=== PATIENT | female | born 1985 | race African-American/Black ===

== ENCOUNTER 2016-08-13 13:36 | Emergency (ER) | payer SELFPAY ==
[2016-08-13 13:46] VITALS: BP 119/71
[2016-08-13] MEDS ORDERED: Ibuprofen TAB* 600 MG PO ONE (14:19)
--- NOTE | 2016-08-13 14:27 | ED ---
Upper Extremity Pain - HPI Summary HPI Summary: 30 female presents to ED after injuring herself while at work around 6:00am this morning on 08/13/16. 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 She complains of left shoulder, elbow and ankle/lower leg pain. She admits to some bruises on her arm from the incident but has not noticed any swelling or wounds. She is able to walk and bear weight on her ankle. Describes the pain to be achey and sore upon movement or on palpation. She tried taking an Ibuprofen around 6:00am while at work after the incident and states it did give her some relief. She denies any neck, back or right extremity pain. Denies c/p, difficulty breathing and headache. She did not hit her head, no LOC. - History of Current Complaint Chief Complaint: EDGeneral Stated Complaint: ARM PAIN INJURY FROM WORK Hx Obtained From: Patient Mechanism Of Injury: Direct Blow - alejandra lift and patient fell on her Onset/Duration: Started Hours Ago Timing: Constant - aching Severity Initially: Mild Severity Currently: Moderate Pain Location: Shoulder, Arm, Elbow, Other: - left ankle, lower legs Character: Dull, Aching, Stiffness Aggravating Factor(s): Movement, Lifting, Flexion, Extension Alleviating Factor(s): Rest, OTC Meds Associated Signs & Symptoms: Positive: Bruising. Negative: Swelling, Redness, Fever, Numbness/Tingling, Back Pain, Neck Pain Related History: Occupational Injury, Dominant Hand Right - Risk Factors DVT Risk Factors: Negative Septic Arthritis Risk Factor: Negative - Allergies/Home Medications Allergies/Adverse Reactions: Allergies Allergy/AdvReac Type Severity Reaction Status Date / Time No Known Allergies Allergy Verified 08/13/16 13:43 PMH/Surg Hx/FS Hx/Imm Hx Endocrine/Hematology History: Denies: Hx Diabetes Cardiovascular History: Denies: Hx Hypertension Infectious Disease History: No Infectious Disease History: Denies: Traveled Outside the [place] in Last 30 Days - Family History Known Family History: Positive: Unknown - Social History Smoking Status (MU): Never Smoked Tobacco Review of Systems Constitutional: Negative Eyes: Negative ENT: Negative Cardiovascular: Negative Respiratory: Negative Gastrointestinal: Negative Genitourinary: Negative Positive: Arthralgia - left elbow, shoulder, ankle, Myalgia - left elbow, shoulder, ankle, Decreased ROM Positive: Bruising - left upper proximal arm, shoulder Neurological: Negative Psychological: Normal All Other Systems Reviewed And Are Negative: Yes Physical Exam Triage Information Reviewed: Yes Vital Signs On Initial Exam: Initial Vitals Temp Pulse Resp BP Pulse Ox 98.0 F 70 18 119/71 100 08/13/16 13:43 08/13/16 13:43 08/13/16 13:43 08/13/16 13:43 08/13/16 13:43 Vital Signs Reviewed: Yes Appearance: Positive: Well-Appearing, No Pain Distress, Well-Nourished Skin: Positive: Warm, Skin Color Reflects Adequate Perfusion, Dry, Purpura - mild ecchymosis noted proximal left extremity and shoulder Head/Face: Positive: Normal Head/Face Inspection - atraumatic, no LOC, no racoon eyes or thomas's sign Eyes: Positive: Normal, EOMI, KELIN, Conjunctiva Clear ENT: Positive: Hearing grossly normal Neck: Positive: Supple, Nontender Respiratory/Lung Sounds: Positive: Clear to Auscultation, Breath Sounds Present Cardiovascular: Positive: Normal, RRR, Pulses are Symmetrical in both Upper and Lower Extremities - 3+ radial and pedal Abdomen Description: Positive: Nontender Musculoskeletal: Positive: Pain @ - on palpation of left elbow, shoulder and ankle. Distal left lower extremity/lopez also tender on palpation. Full passive ROM of elbow ankle and shoulder however painful. No step off, crepitus or deformity noted. minor areas of ecchymosis in upper left extremity. no edema. motor and sensory intact. reflexes intact.. Negative: Augusto Sign Left - negative Dahl test as well, Edema Left Neurological: Positive: Normal, Sensory/Motor Intact, Alert, Oriented to Person Place, Time, CN Intact II-III, Reflexes Intact, NV Bundle Intact Distally, Normal Gait Psychiatric: Positive: Normal Diagnostics - Vital Signs Vital Signs Temp Pulse Resp BP Pulse Ox 08/13/16 13:43 98.0 F 70 18 119/71 100 - Laboratory Lab Statement: Any lab studies that have been ordered have been reviewed, and results considered in the medical decision making process. - Radiology lower left leg x-ray Xray Interpretation: No Acute Changes - NORMAL LEFT LOWER LEG AND ANKLE RADIOGRAPH. Radiology Interpretation Completed By: Radiologist left ankle x-ray Xray Interpretation: No Acute Changes - NORMAL LEFT LOWER LEG AND ANKLE RADIOGRAPH. Radiology Interpretation Completed By: Radiologist left elbow x-ray Xray Interpretation: No Acute Changes - Normal alignment. Negative for fat pad displacement to indicate effusion. No cortical disruption or suspicious trabecular irregularity to suggest fracture. Mild dorsal soft tissue swelling at the proximal forearm. Radiology Interpretation Completed By: Radiologist left shoulder x-ray Xray Interpretation: No Acute Changes - No traumatic injury evident. Re-Evaluation - Re-Evaluation First Eval Re-Evaluation Time: 14:45 Change: Improved - patient's pain was improved after ibuprofen Course/Dx - Course Course Of Treatment: Patient was given Ibuprofen for pain and inflammation. X- rays were taken of left shoulder, elbow and ankle to rule out fracture. All x- rays were negative. Prescribed ibuprofen will be given to take at home. Rest, ice and elevation. Patient was told to follow up with her primary care doctor especially if symptoms persist. - Diagnoses Differential Diagnosis/HQI/PQRI: Positive: Contusion, Fracture (Closed), Strain , Sprain Provider Diagnoses: Left ankle sprain, Sprain of elbow, left, Muscle strain of left shoulder region , Contusion - Physician Notifications Discussed Care Of Patient With: Dr Shah Discharge - Discharge Plan Condition: Stable Disposition: HOME Prescriptions: Ibuprofen TAB* [Motrin TAB* 600 MG] 600 mg PO Q8H PRN #10 tab PRN Reason: Pain Patient Education Materials: Shoulder Pain (ED), Elbow Sprain (ED), Ankle Sprain (ED), Ankle Exercises (GEN) Forms: *Work Release Referrals: Ronn Chang MD [Primary Care Provider] - Additional Instructions: Rest, Ice and Elevation will help with your injuries. Take Ibuprofen or Aleve with food as directed to will help with pain and inflammation. You may also use heat in the morning to help loosen your muscles. Refrain from intense physical activity. If pain persists please follow up with your PCP. If symptoms worsen please return to the ED.
--- NOTE | 2016-08-13 16:16 | RAD ---
Indication: LEFT shoulder pain following injury. Comparison: None. Technique: Internal and external rotation AP and scapular Y views LEFT shoulder Report: Normal acromioclavicular and glenohumeral joint alignment. Negative for fracture. Small inferior acromial bone spur. Unremarkable soft tissue contours. IMPRESSION: No traumatic injury evident.
--- NOTE | 2016-08-13 16:17 | RAD ---
INDICATION: Left lower leg and ankle pain after a "heavy person fell on her this morning" COMPARISON: None. TECHNIQUE: 2 views of the left ankle and 2 views of the left lower leg were obtained. FINDINGS: The well corticated bones exhibit normal alignment. Joint spaces appear maintained. No fracture is seen. IMPRESSION: NORMAL LEFT LOWER LEG AND ANKLE RADIOGRAPH. If the patient's symptoms persist, follow-up imaging is recommended.
--- NOTE | 2016-08-13 16:18 | RAD ---
Indication: LEFT elbow pain following injury. Comparison: None. Technique: AP and lateral views LEFT elbow. REPORT AND IMPRESSION: Normal alignment. Negative for fat pad displacement to indicate effusion. No cortical disruption or suspicious trabecular irregularity to suggest fracture. Mild dorsal soft tissue swelling at the proximal forearm.
--- NOTE | 2016-08-13 20:24 | ED ---
Hever Valente Erika, scribed for Tien Shah MD on 08/13/16 at 1433 . Progress - Progress Note Progress Note: Consulting on a patient for GILBERT Burkett. A 30 y/o F presents to the ED with a CC of multiple pains s/p trauma. 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 She states that early this morning, she was using a [employer] Lift to lift a heavy patient, when the lift and patient fell onto her. She denies LOC. She now reports left elbow pain, left shoulder pain, left ankle pain, and left lateral lopez pain. Pain is aggravated by movement. Patient denies chest pain, back pain, hip pain, and abdominal pain. She reports that she has been able to ambulate. Pain was also partially alleviated by ibuprofen, most recently taken at 06:00 today. Pt states she is right-handed. She denies Hx diabetes. Physical exam: The patient is well-nourished in no acute distress and in no acute pain. The skin is warm and dry and skin color reflects adequate perfusion. HEENT: The head is normocephalic and atraumatic. The pupils are equal and reactive. The conjunctivae are clear and without drainage. There is no Graham' s or Raccoon sign. Nares are patent and without drainage. Mouth reveals moist mucous membranes and the throat is without erythema and exudate. The external ears are intact. The ear canals are patent and without drainage. The tympanic membranes are intact. Neck is supple with full range of motion and non-tender. There are no carotid bruits. There is no neck vein distension. Respiratory: Chest is non-tender. Lungs are clear to auscultation and breath sounds are symmetrical and equal. Cardiovascular: Heart is regular rate and rhythm. There is no murmur or rub auscultated. There is no peripheral edema and pulses are symmetrical and equal. Abdomen: The abdomen is soft and non-tender. There are normal bowel sounds heard in all four quadrants and there is no organomegaly palpated. Musculoskeletal: There is no back pain noted. There is pain noted in the left shoulder. There is tenderness over the radial head of the left elbow. There is tenderness over the left distal ulna. There is good capillary refill and good pulses distally. There is tenderness in the left lateral malleolus. There is ecchymosis and tenderness in the left leg and left ankle, but there is full ROM. There is no peripheral edema or calf tenderness elicited. Neurological: Patient is alert and oriented to person, place and time. The patient has symmetrical motor strength in all four extremities. Cranial nerves are grossly intact. Deep tendon reflexes are symmetrical and equal in all four extremities. Psychiatric: The patient has an appropriate affect and does not exhibit any anxiety or depression. Please refer to Mary Bolivar's note for additional information. <Tien Shah - Last Filed: 08/13/16 20:23> Re-Evaluation - Re-Evaluation First Eval Re-Evaluation Time: 14:45 Change: Improved - patient's pain was improved after ibuprofen <Mary Bolivar - Last Filed: 08/13/16 19:25> Course/Dx <Mary Bolivar - Last Filed: 08/13/16 19:25> <Tien Shah - Last Filed: 08/13/16 20:23> - Diagnoses Provider Diagnoses: Left ankle sprain, Sprain of elbow, left, Muscle strain of left shoulder region , Contusion The documentation as recorded by the Hever pike Erika accurately reflects the service I personally performed and the decisions made by Alyssa wright Drew, MD.
== END 2016-08-13 17:10 | disposition home or self-care (01) ==
LOC: ED 13:36
DX: S93.402A Sprain of unspecified ligament of left ankle, initial encounter (principal); S53.402A Unspecified sprain of left elbow, initial encounter; S43.402A Unspecified sprain of left shoulder joint, initial encounter; Y93.F2 Activity, caregiving, lifting; Y92.9 Unspecified place or not applicable; T14.8 Other injury of unspecified body region; W22.8XXA Striking against or struck by other objects, initial encounter
CPT/HCPCS: 99282; A9270-GY

== ENCOUNTER 2016-08-23 08:07 | Emergency (ER) | payer OTHER ==
--- NOTE | 2016-08-23 09:24 | RAD ---
Indication: Fall, vomiting. CT of the brain was performed without IV contrast. Ventricular structures are midline. No midline shift is noted. The extraction spaces are unremarkable. There is no evidence of intracranial mass or hemorrhage. No other high or low density lesions are identified. Mastoid air cells and paranasal sinuses are otherwise unremarkable. IMPRESSION: No intracranial mass or hemorrhage is noted.
--- NOTE | 2016-08-23 09:33 | ED ---
Head Injury - HPI Summary HPI Summary: Patient presents after falling up her stairs two days ago while carrying groceries. She fell forward and struck the left side of her face, resulting in a small abrasion on her left cheek. She vomited afterwards, but denies LOC, neck pain or amnesia. She presents today due to headache and black eye. She has been able to go about her normal activities without neuro deficits or abnormality. She does not take blood thinners. She is able to open her mouth fully and does not have pain chewing or swallowing. She has altered sensation - History Of Current Complaint Chief Complaint: EDHeadInjury Stated Complaint: FALL 2DAYS AGO Time Seen by Provider: 08/23/16 08:41 Hx Obtained From: Patient Mechanism Of Injury: Fall From A Standing Position Onset/Duration: Started Days Ago, Traumatic, Still Present Onset of Pain: Immediate Severity Currently: Severe Severity Initially: Severe Pain Intensity: 9 Location of Head Injury: Frontal Location: Discrete At: - left forehead and cheek Character: Dull, Aching Alleviating Factor(s): Ice, OTC Medications` Associated Signs And Symptoms: Vomiting, Bruising - Allergies/Home Medications Allergies/Adverse Reactions: Allergies Allergy/AdvReac Type Severity Reaction Status Date / Time No Known Allergies Allergy Verified 08/13/16 13:43 PMH/Surg Hx/FS Hx/Imm Hx Previously Healthy: Yes Endocrine/Hematology History: Denies: Hx Diabetes Cardiovascular History: Denies: Hx Hypertension Respiratory History: Denies: Hx Asthma Infectious Disease History: No Infectious Disease History: Denies: Traveled Outside the [place] in Last 30 Days - Family History Known Family History: Positive: Unknown - Social History Occupation: Employed Full-time Lives: With Family Alcohol Use: None Substance Use Type: Reports: None Smoking Status (MU): Never Smoked Tobacco Review of Systems Negative: Photophobia, Diplopia Positive: Bruising - left inferior orbit Positive: Headache - mild. Negative: Weakness, Paresthesia, Numbness All Other Systems Reviewed And Are Negative: Yes Physical Exam Triage Information Reviewed: Yes Vital Signs On Initial Exam: Initial Vitals Temp Pulse Resp BP Pulse Ox 98.2 F 74 20 136/75 100 08/23/16 08:09 08/23/16 08:09 08/23/16 08:09 08/23/16 08:09 08/23/16 08:09 Vital Signs Reviewed: Yes Appearance: Positive: Well-Appearing, Pain Distress, Obese Skin: Positive: Warm, Skin Color Reflects Adequate Perfusion, Dry, Tender - left orbit ecchymosis and pea sized abrasion, Soft Head/Face: Positive: Normal Head/Face Inspection - left orbit ecchymosis and pea sized abrasion Eyes: Positive: EOMI, KELIN, Conjunctiva Clear ENT: Positive: Hearing grossly normal, Pharynx normal, TMs normal Dental: Negative: Percussion Tenderness @ Neck: Positive: Supple, Nontender, No Lymphadenopathy Respiratory/Lung Sounds: Positive: Clear to Auscultation, Breath Sounds Present Cardiovascular: Positive: RRR Musculoskeletal: Negative: Edema Right Neurological: Positive: Sensory/Motor Intact, Alert, Oriented to Person Place, Time, CN Intact II-III, NV Bundle Intact Distally, Normal Gait Psychiatric: Positive: Affect/Mood Appropriate AVPU Assessment: Alert Diagnostics - Vital Signs Vital Signs Temp Pulse Resp BP Pulse Ox 08/23/16 08:42 64 100 08/23/16 08:09 98.2 F 74 20 136/75 100 - Laboratory Lab Statement: Any lab studies that have been ordered have been reviewed, and results considered in the medical decision making process. - CT No standard instances CT Interpretation: No Acute Changes CT Interpretation Completed By: Radiologist - CT brain negative Head Injury Course/Dx - Diagnoses Differential Diagnosis/HQI/PQRI: Cerebral Contusion, Cervical Sprain, Contusion , Hematoma, Intracranial Bleed, Orbital Fracture, Skull Fracture Provider Diagnoses: Head injury, Contusion Discharge - Discharge Plan Condition: Stable Disposition: HOME Patient Education Materials: Head Injury (ED) Referrals: Ronn Chang MD [Primary Care Provider] - Additional Instructions: Please continue to ice and use Tylenol and ibuprofen to help with pain. Follow- up with your primary care provider in 3-5 days if your symptoms do not improve. Return to the emergency department if symptoms worsen.
[2016-08-23 10:21] VITALS: BP 108/66
== END 2016-08-23 10:20 | disposition home or self-care (01) ==
LOC: ED 08:07
DX: S09.90XA Unspecified injury of head, initial encounter (principal); S00.83XA Contusion of other part of head, initial encounter; W10.9XXA Fall (on) (from) unspecified stairs and steps, initial encounter; Y92.9 Unspecified place or not applicable; Y93.89 Activity, other specified
CPT/HCPCS: 70450; 99282

== ENCOUNTER 2016-12-21 14:52 | Emergency (ER) | payer OTHER ==
[2016-12-21] MEDS ORDERED: oxyCODONE/Acetamin 5/325 MG* TAB PO ONE ×2 (17:35)
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
[2016-12-21 18:37] LABS: UR Preg Internal Control QC Line Present
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
[2016-12-21 20:19] VITALS: BP 126/74
== END 2016-12-21 20:18 | disposition home or self-care (01) ==
LOC: EEVIPCON 14:52 → ED 14:52
DX: T14.8 Other injury of unspecified body region (principal); Y04.2XXA Assault by strike against or bumped into by another person, initial encounter; Y92.9 Unspecified place or not applicable
CPT/HCPCS: 70450; 70486; 81025; 99282; A9270-GY

== ENCOUNTER → 2017-04-21 13:23 | Emergency (ER) | payer SELFPAY ==
[~2017-04-21 13:23] MED LIST: oxyCODONE/Acetamin 5/325 MG* TAB PO ONE
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
== END | disposition home or self-care (01) ==
LOC: ED 13:23
DX: M54.5 Low back pain (principal); S70.12XA Contusion of left thigh, initial encounter; S70.11XA Contusion of right thigh, initial encounter; S30.0XXA Contusion of lower back and pelvis, initial encounter; Y04.2XXA Assault by strike against or bumped into by another person, initial encounter; Y92.9 Unspecified place or not applicable
CPT/HCPCS: 36415; 86703; 99282; A9270-GY

== ENCOUNTER 2017-08-15 08:51 | Emergency (ER) | payer SELFPAY ==
[2017-08-15] MEDS ORDERED: Al Hydrox/Mg Hydrox/Simet LIQ* 30 ML UDC PO ONE (09:22)
[2017-08-15] MEDS ORDERED: Lidocaine 2% VISCOUS* 15 ML UDC PO ONE (09:22)
[2017-08-15] MEDS ORDERED: Ondansetron INJ* 2 MG/ML VIAL IV ONE (09:22)
[2017-08-15] MEDS: NS 0.9% 1000 ML* 2,000 ML IV ONE ×2 (09:38→09:39)
[2017-08-15 09:52] LABS: ABS Basophils 0.1 10^3/ul (0-0.2); ABS Eosinophils 0.1 10^3/ul (0-0.6); ABS Monocytes 0.4 10^3/ul (0-0.8); ABS Neutrophils 2.8 10^3/ul (1.5-7.7); ABS Nucleated RBC 0 10^3/ul; Eosinophil % 1.8 % (0-6); Hematocrit 38 % (35-47); Hemoglobin 12.7 g/dl (12.0-16.0); Lymphocyte % 23.7 % (25-47); Mean Corpuscular HGB Conc 33 g/dl (31-36); Mean Corpuscular Hemoglobin 29 pg (27-31); Mean Corpuscular Volume 88 fL (80-97); Mean Platelet Volume 8 um3 (7.4-10.4); Nucleated Red Blood Cells % 0.1; Platelet Count 230 10^3/ul (150-450); Red Blood Count 4.33 10^6/ul (4.0-5.4); Red Cell Distribution Width 15 % (10.5-15); White Blood Count 4.4 10^3/ul (3.5-10.8)
[2017-08-15 10:11] LABS: EGFR Non-African American 91.4 (>60)
[2017-08-15 12:56] LABS: Urine Appearance Cloudy; Urine Blood Negative (Negative); Urine Color Yellow; Urine Ketones Negative (Negative); Urine Protein Negative (Negative); Urine Specific Gravity 1.017 (1.010-1.030); Urine Urobilinogen Negative (Negative)
[2017-08-15] MEDS ORDERED: Sulfamethox/Trimethoprim DS 800/160* TAB PO ONE (13:10)
[2017-08-15 14:16] VITALS: BP 123/84
--- NOTE | 2017-08-16 16:13 | ED ---
Alfonzo Valente Gabriel scribed for Mo Lee MD on 08/15/17 at 0918 . Abdominal Pain/Female - HPI Summary HPI Summary: This patient is a 31 year old F presenting to [facility] with a chief complaint of ABD pain that began at 0100 this morning. The patient rates the pain 10/10 in severity. Patient reports diarrhea, hematemesis at 0700 with bright red blood, fever, dysuria, and flank pain. Patient denies diaphoresis and chills. The hematemesis has stopped, she had 4 episodes with vomit and blood there was none of just blood. Patient has no GI history, no stomach ulcers, does not drink, but she has been sick for 2 days prior. - History of Current Complaint Chief Complaint: EDAbdPain Stated Complaint: VOMITING/BODY PAIN Time Seen by Provider: 08/15/17 09:06 Hx Obtained From: Patient Onset/Duration: Lasting Hours, Still Present Timing: Constant Severity Initially: Severe Severity Currently: Severe Pain Intensity: 10 Pain Scale Used: 0-10 Numeric Location: Diffuse Radiates: Yes Associated Signs and Symptoms: Positive: Negative - sweats and chills., Other: - diarrhea, hematemesis at 0700 with bright red blood, fever, dysuria, and flank pain. Allergies/Adverse Reactions: Allergies Allergy/AdvReac Type Severity Reaction Status Date / Time No Known Allergies Allergy Verified 08/15/17 08:56 PMH/Surg Hx/FS Hx/Imm Hx Endocrine/Hematology History: Denies: Hx Diabetes Cardiovascular History: Denies: Hx Hypertension Respiratory History: Denies: Hx Asthma History: Denies: Hx Acute Renal Failure, Hx Benign Prostatic Hyperplasia Musculoskeletal History: Denies: Hx Arthritis - Surgical History Surgery Procedure, Year, and Place: x 2 Infectious Disease History: No Infectious Disease History: Denies: Traveled Outside the [place] in Last 30 Days - Family History Known Family History: Positive: Hypertension, Diabetes, Other - Cancer, hypercholesterolemia - Social History Lives: With Family Alcohol Use: None Hx Substance Use: No Substance Use Type: Reports: None Hx Tobacco Use: No Smoking Status (MU): Never Smoked Tobacco Review of Systems Positive: Fever. Negative: Chills, Skin Diaphoresis Negative: Erythema Negative: Sore Throat Negative: Chest Pain Negative: Shortness Of Breath, Cough Positive: Abdominal Pain, Vomiting, Diarrhea, Nausea, Other - hematemesis Positive: dysuria. Negative: hematuria Positive: Other - flank pain . Negative: Myalgia, Edema Negative: Rash Neurological: Negative - dizziness All Other Systems Reviewed And Are Negative: Yes Physical Exam - Summary Physical Exam Summary: Constitutional: Well-developed, Well-nourished, Alert. (-) Distressed Skin: Warm, Dry HENT: Normocephalic; Atraumatic Eyes: Conjunctiva normal Neck: Musculoskeletal ROM normal neck. (-) JVD, (-) Stridor, (-) Tracheal deviation Cardio: Rhythm regular, rate normal, Heart sounds normal; Intact distal pulses; The pedal pulses are 2+ and symmetric. Radial pulses are 2+ and symmetric. (-) Murmur Pulmonary/Chest wall: Effort normal. (-) Respiratory distress, (-) Wheezes, (-) Rales Abd: Soft, (+) Tenderness, (-) Distension, (-) Guarding, (-) Rebound, epigastric and LUQ tenderness Musculoskeletal: (-) Edema Lymph: (-) Cervical adenopathy Neuro: Alert, Oriented x3 Psych: Mood and affect Normal Triage Information Reviewed: Yes Vital Signs On Initial Exam: Initial Vitals Temp Pulse Resp BP Pulse Ox 98.4 F 66 16 130/77 100 08/15/17 08:54 08/15/17 08:54 08/15/17 08:54 08/15/17 08:54 08/15/17 08:54 Vital Signs Reviewed: Yes - [place] Coma Scale Coma Scale Total: 15 Diagnostics - Vital Signs Vital Signs Temp Pulse Resp BP Pulse Ox 08/15/17 08:54 98.4 F 66 16 130/77 100 - Laboratory Result Diagrams: 08/15/17 09:43 08/15/17 09:43 Lab Statement: Any lab studies that have been ordered have been reviewed, and results considered in the medical decision making process. Re-Evaluation - Re-Evaluation First Eval Re-Evaluation Time: 13:16 Change: Improved Comment: Patient is feeling better, tolerating PO, and would like to go home. Abdominal Pain Fem Course/Dx - Course Course Of Treatment: This patient is a 31 year old F presenting to [facility] with a chief complaint of ABD pain that began at 0100 this morning. The patient rates the pain 10/10 in severity. Patient reports diarrhea, hematemesis at 0700 with bright red blood, fever, dysuria, and flank pain. Patient denies sweats and chills. The hematemesis has stopped, she had 4 episodes with vomit and blood there was none of just blood. Patient has no GI history, no stomach ulcers, does not drink, but she has been sick for 2 days prior. Bloodwork and UA obtained. In the ED course the patient was given Bactrim, Zofran, Maalox, and IV fluids. Patient will be discharged with prescription for Bactrim and zofran and follow up from Dr. banegas. The patient is agreeable with this plan. - Diagnoses Provider Diagnoses: UTI (urinary tract infection), Gastroenteritis Discharge - Discharge Plan Condition: Stable Disposition: HOME Prescriptions: Ondansetron ODT TAB* [Zofran 4 MG Odt TAB*] 4 mg PO Q8H PRN #12 tab.odt PRN Reason: Nausea/Vomiting Sulfamethox/Trimethoprim DS* [Bactrim DS 800/160 TAB*] 1 tab PO BID #14 tab Patient Education Materials: Sulfamethoxazole/Trimethoprim (By mouth), Ondansetron (By mouth), Urinary Tract Infection in Women (ED) Referrals: Ronn Banegas MD [Primary Care Provider] - Additional Instructions: Take Maalox and tums as needed and stay hydrated. Return to emergency room for new or worsening symptoms. The documentation as recorded by the Alfonzo pike Gabriel accurately reflects the service I personally performed and the decisions made by , Mo Lee MD.
== END 2017-08-15 14:15 | disposition home or self-care (01) ==
LOC: ED 08:51
DX: N39.0 Urinary tract infection, site not specified (principal); K52.9 Noninfective gastroenteritis and colitis, unspecified
CPT/HCPCS: 36415; 80053; 81003; 81015; 83605; 83690; 84702; 85025; 86140; 87086; 99282; A9270-GY; J2405

== ENCOUNTER 2017-08-15 17:57 | Emergency (ER) | payer SELFPAY ==
[2017-08-15 18:09] VITALS: BP 125/76
== END 2017-08-15 22:06 | disposition left against medical advice (07) ==
LOC: ED 17:57
DX: R10.9 Unspecified abdominal pain (principal); Z53.21 Procedure and treatment not carried out due to patient leaving prior to being seen by health care provider

== ENCOUNTER 2017-08-16 08:13 | Emergency (ER) | payer SELFPAY ==
[2017-08-16] MEDS ORDERED: cefTRIAXone(*) 1 GM in NS 0.9% 50 ML* 50 ML IVPB ONE (09:41)
[2017-08-16] MEDS ORDERED: Ondansetron INJ* 2 MG/ML VIAL IV ONE (09:41)
[2017-08-16] MEDS ORDERED: NS 0.9% 1000 ML* 1,000 ML IV ONE (09:41)
[2017-08-16 10:39] VITALS: BP 102/75
--- NOTE | 2017-08-16 16:14 | ED ---
Amanda Valente Julia, scribed for Beth Fernandez MD on 08/16/17 at 0947 . Abdominal Pain/Female - HPI Summary HPI Summary: This patient is a 31 year old F presenting to [facility] with a chief complaint of n/ v/d since yesterday morning. Patient reports UTI diagnosis from yesterdays ED visit, fever, epigastric abdominal pain, headache, chills, mild SOB, and mild hematuria that occurred yesterday. Patient denies chest pain, back pain, ear ache, sore throat, rash, or bowel symptoms. The patient rates the pain 8/10 in severity. - History of Current Complaint Chief Complaint: EDNauseaVomitDiarrh Stated Complaint: VOMITING Time Seen by Provider: 08/16/17 08:34 Hx Obtained From: Patient Onset/Duration: Lasting Days Timing: Constant Pain Intensity: 8 Pain Scale Used: 0-10 Numeric Location: Epigastric Associated Signs and Symptoms: Positive: Other: - reports UTI diagnosis from yesterdays ED visit, fever, epigastric abdominal pain, headache, chills, mild SOB, and mild hematuria that occurred yesterday Allergies/Adverse Reactions: Allergies Allergy/AdvReac Type Severity Reaction Status Date / Time No Known Allergies Allergy Verified 08/16/17 08:14 PMH/Surg Hx/FS Hx/Imm Hx Endocrine/Hematology History: Denies: Hx Diabetes Cardiovascular History: Denies: Hx Hypertension Respiratory History: Denies: Hx Asthma - Surgical History Surgery Procedure, Year, and Place: x 2 Infectious Disease History: No Infectious Disease History: Denies: Traveled Outside the [place] in Last 30 Days - Family History Known Family History: Positive: Hypertension, Other - Cancer, hypercholesterolemia - Social History Alcohol Use: None Hx Substance Use: No Substance Use Type: Reports: None Hx Tobacco Use: No Smoking Status (MU): Never Smoked Tobacco Review of Systems Positive: Chills Negative: Sore Throat, Ear Ache Negative: Chest Pain Positive: Shortness Of Breath Gastrointestinal: Negative - bowel symptoms Positive: Abdominal Pain, Vomiting, Diarrhea, Nausea Positive: hematuria Musculoskeletal: Negative - back pain Negative: Rash Positive: Headache All Other Systems Reviewed And Are Negative: No Physical Exam - Summary Physical Exam Summary: Appearance: Alert, conversive, nontoxic appearing Skin: Warm, dry, no mottling, no rashes, no contusions HEENT: EOMI, PERRL, moist mucous membranes Neck: No masses on the neck, supple Respiratory: Clear to auscultation, breath sounds present, no rales, no rhonchi , no wheezes Cardiovascular: RRR, pulses are symmetrical in both lower and upper extremities Abdomen: Soft, epigastric tenderness Bowel Sounds: Present Musculoskeletal: No CVA tenderness, no obvious deformity, moving all extremities in a grossly normal manner Neurological: A&Ox3, CN II-XII Intact, moving all extremities symmetrically Psychiatric: Normal affect and mood Triage Information Reviewed: Yes Vital Signs On Initial Exam: Initial Vitals Temp Pulse Resp BP Pulse Ox 98.8 F 74 17 111/89 98 08/16/17 08:15 08/16/17 08:15 08/16/17 08:15 08/16/17 08:15 08/16/17 08:15 Vital Signs Reviewed: Yes - [place] Coma Scale Coma Scale Total: 15 Diagnostics - Vital Signs Vital Signs Temp Pulse Resp BP Pulse Ox 08/16/17 08:30 78 113/74 97 08/16/17 08:28 84 99 08/16/17 08:27 118/70 08/16/17 08:15 98.8 F 74 17 111/89 98 - Laboratory Lab Statement: Any lab studies that have been ordered have been reviewed, and results considered in the medical decision making process. Re-Evaluation - Re-Evaluation 1 Re-Evaluation Time: 10:40 Change: Improved - Pt is feeling better after fluids. She will be given rocephin. Comment: Pt is feeling better after 250cc of fluid and antibiotics. Will discharge with a voucher for antibiotics. 2 Re-Evaluation Time: 11:25 Change: Improved Abdominal Pain Fem Course/Dx - Course Course Of Treatment: Patients labs from yesterday were reviewed, revealing a mild UTI but were otherwise normal. Today in the ED she was given 1L of IV fluids, Zofran and Rocephin. - Diagnoses Provider Diagnoses: UTI (urinary tract infection), Acute vomiting Discharge - Discharge Plan Condition: Stable Disposition: HOME Prescriptions: Ondansetron ODT TAB* [Zofran 4 MG Odt TAB*] 4 mg PO Q8H PRN #20 tab.odt PRN Reason: Nausea Sulfamethox/Trimethoprim DS* [Bactrim DS 800/160 TAB*] 1 tab PO BID #20 tab Patient Education Materials: Urinary Tract Infection in Women (ED), Acute Nausea and Vomiting (ED) Referrals: Ronn Chang MD [Primary Care Provider] - Additional Instructions: Take all medications as previously instructed. I have also added zofran for your nausea. return if worse or any new symptoms. It is important to follow up with your primary care physician. The documentation as recorded by the Amanda pike Julia accurately reflects the service I personally performed and the decisions made by me, Beth Fernandez MD.
== END 2017-08-16 11:40 | disposition home or self-care (01) ==
LOC: ED 08:13
DX: N39.0 Urinary tract infection, site not specified (principal); R10.9 Unspecified abdominal pain; R11.2 Nausea with vomiting, unspecified; R19.7 Diarrhea, unspecified; R06.02 Shortness of breath; R31.9 Hematuria, unspecified; R51 Headache
CPT/HCPCS: 99283; J0696; J2405

== ENCOUNTER 2017-12-03 14:00 | Emergency (ER) | payer SELFPAY ==
[2017-12-03] MEDS ORDERED: traMADol TAB* 50 MG PO ONE (16:35)
[2017-12-03] MEDS ORDERED: Tetan/Diph/Pertus SYR(Tdap)* 0.5 ML SYR(BOOSTRIX) use SYR IM ONE (16:37)
--- NOTE | 2017-12-03 18:18 | RAD ---
Indication: Mostly LEFT fifth finger anterior pain. Laceration. Comparison: No relevant prior exams available on the [facility] PACS for comparison. Technique: AP and lateral views LEFT hand REPORT AND IMPRESSION: Soft tissue swelling most prominent at the radial aspect of the fifth finger. Subtle skin contour irregularity at the level of the middle phalanx consistent with history of laceration. No conspicuous foreign body. Negative for fracture or malalignment.
[2017-12-03 19:05] VITALS: BP 129/81
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
== END 2017-12-03 19:03 | disposition home or self-care (01) ==
LOC: ED 14:00
DX: S61.217A Laceration without foreign body of left little finger without damage to nail, initial encounter (principal); X99.8XXA Assault by other sharp object, initial encounter; Y92.9 Unspecified place or not applicable
CPT/HCPCS: 36415; 84702; 99282

== ENCOUNTER 2018-01-23 09:29 | Emergency (ER) | payer SELFPAY ==
[2018-01-23] MEDS ORDERED: NS 0.9% 1000 ML* 1,000 ML IV ONE ×2 (09:46→11:07)
[2018-01-23] MEDS ORDERED: Ondansetron ODT TAB* 4 MG PO ONE ×2 (09:52→13:25)
--- NOTE | 2018-01-23 10:06 | ED ---
Dizziness - HPI Summary HPI Summary: 32F presents with nausea vomiting diarrhea for the past 3 days. She also admits to dizzy. She admits to left upper quadrant pain that is burning. She hasn't been able to keep anything down. The dizziness is worse when she is standing or gets up quickly. Does not have a history of this. Did not eat anything different. No fevers. No one else is sick. No sore throat. No chest pain or shortness of breath. Dizziness as a feeling that she is going to pass out. She has PMH of anemia. no significant vaginal bleeding at the moment. - History Of Current Complaint Chief Complaint: EDDizziness Stated Complaint: DIZZINESS Time Seen by Provider: 01/23/18 09:39 - Allergies/Home Medications Allergies/Adverse Reactions: Allergies Allergy/AdvReac Type Severity Reaction Status Date / Time No Known Allergies Allergy Verified 08/16/17 08:14 Home Medications: Home Medications NK [No Home Medications Reported] 01/23/18 [History Confirmed 01/23/18] PMH/Surg Hx/FS Hx/Imm Hx Endocrine/Hematology History: Denies: Hx Diabetes Cardiovascular History: Denies: Hx Hypertension Respiratory History: Denies: Hx Asthma - Surgical History Surgery Procedure, Year, and Place: x 2 Infectious Disease History: No Infectious Disease History: Denies: Traveled Outside the [place] in Last 30 Days - Family History Known Family History: Positive: Unknown, Hypertension, Other - Cancer, hypercholesterolemia Negative: Cardiac Disease - Social History Alcohol Use: None Hx Substance Use: No Substance Use Type: Reports: None Hx Tobacco Use: No Smoking Status (MU): Never Smoked Tobacco Review of Systems Negative: Fever Negative: Chest Pain Negative: Shortness Of Breath Positive: Abdominal Pain, Vomiting, Diarrhea, Nausea Neurological: Other - dizziness All Other Systems Reviewed And Are Negative: Yes Physical Exam Triage Information Reviewed: Yes Vital Signs On Initial Exam: Initial Vitals Temp Pulse Resp BP Pulse Ox 97.9 F 64 12 126/81 98 01/23/18 09:45 01/23/18 09:45 01/23/18 09:45 01/23/18 09:45 01/23/18 09:45 Vital Signs Reviewed: Yes Appearance: Positive: Well-Appearing Skin: Positive: Warm, Dry Head/Face: Positive: Normal Head/Face Inspection Eyes: Positive: Normal, EOMI, KELIN, Conjunctiva Clear ENT: Positive: Normal ENT inspection, Pharynx normal, TMs normal Respiratory/Lung Sounds: Positive: Clear to Auscultation, Breath Sounds Present Cardiovascular: Positive: Normal, RRR Abdomen Description: Positive: Soft, Other: - mild LUQ pain Bowel Sounds: Positive: Present Musculoskeletal: Positive: Normal Neurological: Positive: Sensory/Motor Intact, Alert, Oriented to Person Place, Time, CN Intact II-III, Normal Gait Psychiatric: Positive: Normal Diagnostics - Vital Signs Vital Signs Temp Pulse Resp BP Pulse Ox 01/23/18 09:47 71 116/78 01/23/18 09:45 97.9 F 64 12 126/81 98 - Laboratory Result Diagrams: 01/23/18 10:00 01/23/18 10:00 Lab Statement: Any lab studies that have been ordered have been reviewed, and results considered in the medical decision making process. - EKG No standard instances Cardiac Rate: NL EKG Rhythm: Sinus Rhythm EKG Interpretation: sinus rhythm Dizzy Course/Dx - Course Course Of Treatment: 32F presents with nausea vomiting diarrhea for the past 3 days. She also admits to dizzy. She admits to left upper quadrant pain that is burning. She hasn't been able to keep anything down. The dizziness is worse when she is standing or gets up quickly. Does not have a history of this. Did not eat anything different. No fevers. No one else is sick. No sore throat. No chest pain or shortness of breath. Dizziness as a feeling that she is going to pass out. She has PMH of anemia. On exam tenderness and left upper quadrant. Lungs clear to auscultation. Heart regular rate and rhythm. Normal neuro exam. vitals not orthostatic. ekg normal. labs wbc normal. h/h 11.3 which is not significantly low. electrolytes normal. gave fluids and zofran and feeling better. troponin came back elevated at .4. patient intially stated did not have chest pain but after further questioning states that has been having interiment chest pain for past three days but none now. She describes it as a burning pain worst after vomits. She is a smoker. no history of HTN or DM. denies any family history of CAD. only risk factor is smoking. second troponin zero so likely false elevated may be due to dehyradation. discussed with dr vazquez will send home to follow up with primary. chest pain is likely GI as improved with GI cocktail. told if chest pain persistent to return. will send home with prepack zofran as does not have insurance. patient understand and agrees with plan. - Diagnoses Differential Diagnosis/HQI/PQRI: Hypovolemia, Metabolic Abnormality, Vasovagal Reaction Provider Diagnoses: Nausea vomiting and diarrhea, Dizziness Discharge - Sign-Out/Discharge Documenting (check all that apply): Discharge/Admit/Transfer - Discharge Plan Condition: Good Disposition: HOME Patient Education Materials: Acute Nausea and Vomiting (ED) Referrals: Ronn Chang MD [Primary Care Provider] - Additional Instructions: Can take Zofran every 6 hours as needed for nausea Drink small amounts of fluid as tolerated When able to eat follow BRAT diet: Bananas, rice, applesauce, toast Take ibuprofen or Tylenol for pain as needed every 6 hours Follow up with primary within 5 days Return to ED if develop fever that does not respond to Tylenol or ibuprofen, severe abdominal pain, or any new or worsening symptoms - Billing Disposition and Condition Condition: GOOD Disposition: Home
[2018-01-23 10:20] LABS: ABS Basophils 0 10^3/ul (0-0.2); ABS Eosinophils 0.2 10^3/ul (0-0.6); ABS Lymphocytes 1.1 10^3/ul (1.0-4.8); ABS Monocytes 0.3 10^3/ul (0-0.8); ABS Neutrophils 1.9 10^3/ul (1.5-7.7); ABS Nucleated RBC 0 10^3/ul; Eosinophil % 4.6 % (0-6); Hematocrit 33 % (35-47); Hemoglobin 11.3 g/dl (12.0-16.0); Lymphocyte % 30.7 % (25-47); Mean Corpuscular HGB Conc 34 g/dl (31-36); Mean Corpuscular Hemoglobin 30 pg (27-31); Mean Corpuscular Volume 89 fL (80-97); Mean Platelet Volume 8.4 um3 (7.4-10.4); Nucleated Red Blood Cells % 0; Platelet Count 246 10^3/ul (150-450); Red Blood Count 3.75 10^6/ul (4.00-5.40); Red Cell Distribution Width 14 % (10.5-15); White Blood Count 3.6 10^3/ul (3.5-10.8)
[2018-01-23 10:38] LABS: EGFR Non-African American 80.7 (>60)
[2018-01-23 11:10] LABS: Urine Appearance Cloudy; Urine Blood 3+ (Negative); Urine Color Yellow; Urine Ketones Negative (Negative); Urine Protein Negative (Negative); Urine Specific Gravity 1.008 (1.010-1.030); Urine Urobilinogen Negative (Negative)
[2018-01-23] MEDS ORDERED: Al Hydrox/Mg Hydrox/Simet LIQ* 30 ML UDC PO ONE (13:15)
[2018-01-23] MEDS ORDERED: Lidocaine 2% VISCOUS* 15 ML UDC PO ONE (13:15)
[2018-01-23] MEDS ORDERED: O ndansetron ODT 4MG 2TAB PRPK 4 MG PAK PO ONE (13:16)
[2018-01-23] MEDS ORDERED: Ondansetron ODT TAB* 4 MG ONE (13:26)
[2018-01-23 13:33] VITALS: BP 126/72
== END 2018-01-23 13:32 | disposition home or self-care (01) ==
LOC: ED 09:29
DX: R11.2 Nausea with vomiting, unspecified (principal); R19.7 Diarrhea, unspecified; R42 Dizziness and giddiness; R10.9 Unspecified abdominal pain
CPT/HCPCS: 36415; 80053; 81003; 81015; 83605; 83735; 84443; 84484; 85025; 87086; 93005; 96360; 99283; A9270-GY

== ENCOUNTER 2018-02-22 21:18 | Emergency (ER) | payer SELFPAY ==
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
[2018-02-22 22:24] LABS: ABS Basophils 0 10^3/ul (0-0.2); ABS Eosinophils 0 10^3/ul (0-0.6); ABS Lymphocytes 1.3 10^3/ul (1.0-4.8); ABS Monocytes 0.4 10^3/ul (0-0.8); ABS Neutrophils 5.1 10^3/ul (1.5-7.7); ABS Nucleated RBC 0 10^3/ul; Eosinophil % 0.4 % (0-6); Hematocrit 33 % (35-47); Hemoglobin 11.3 g/dl (12.0-16.0); Lymphocyte % 19.2 % (25-47); Mean Corpuscular HGB Conc 34 g/dl (31-36); Mean Corpuscular Hemoglobin 31 pg (27-31); Mean Corpuscular Volume 89 fL (80-97); Mean Platelet Volume 8.7 um3 (7.4-10.4); Nucleated Red Blood Cells % 0.1; Platelet Count 214 10^3/ul (150-450); Red Cell Distribution Width 15 % (10.5-15)
[2018-02-22 22:30] LABS: INR 1.1 (0.77-1.02)
[2018-02-22 22:45] LABS: EGFR Non-African American 89.4 (>60)
[2018-02-22] MEDS ORDERED: Iohexol 300* (CONTRAST) 10 ML SDV IV ONE ×2 (22:56→23:03)
[2018-02-23] MEDS ORDERED: Cephalexin CAP* 500 MG PO ONE (00:46)
[2018-02-23 01:18] VITALS: BP 115/90
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
== END 2018-02-23 01:18 | disposition home or self-care (01) ==
LOC: ED 21:18
DX: S39.91XA Unspecified injury of abdomen, initial encounter (principal); T14.8XXA Other injury of unspecified body region, initial encounter; S67.10XA Crushing injury of unspecified finger(s), initial encounter; Y09 Assault by unspecified means; Y92.9 Unspecified place or not applicable; Z72.0 Tobacco use
CPT/HCPCS: 36415; 73140; 74177; 80053; 84702; 85025; 85610; 85730; 99283; A9270-GY; Q9967

== ENCOUNTER 2018-09-23 14:04 | Emergency (ER) | payer OTHER ==
[2018-09-23 15:13] VITALS: BP 128/85
--- NOTE | 2018-09-23 16:56 | ED ---
Skin Complaint - HPI Summary HPI Summary: Pt. is a 32 y.o female who presents to the ER for rash to chest x 1 month. Pt. states she has been getting small red bumps over breast that are painful and occasion there is a discharge. She denies fever/chills. Pt. denies past medical hx. She does not have a PCP and has not been seen for this rash. She states she has been putting a hydrocortisone cream on rash without improvement. Sxs are mild in severity. No current modifying factors. - History of Current Complaint Chief Complaint: EDBreastComplaint Time Seen by Provider: 09/23/18 14:29 Stated Complaint: GENERAL Hx Obtained From: Patient Pain Intensity: 2 - Allergy/Home Medications Allergies/Adverse Reactions: Allergies Allergy/AdvReac Type Severity Reaction Status Date / Time No Known Allergies Allergy Verified 08/16/17 08:14 PMH/Surg Hx/FS Hx/Imm Hx Previously Healthy: Yes Endocrine/Hematology History: Denies: Hx Anticoagulant Therapy, Hx Blood Disorders, Hx Diabetes Cardiovascular History: Denies: Hx Hypertension Respiratory History: Denies: Hx Asthma History: Denies: Hx Dialysis, Hx Renal Disease - Surgical History Surgery Procedure, Year, and Place: x 2 Infectious Disease History: No Infectious Disease History: Denies: Traveled Outside the [place] in Last 30 Days - Family History Known Family History: Positive: Hypertension, Other - Cancer, hypercholesterolemia Negative: Cardiac Disease - Social History Occupation: Employed Full-time Lives: With Family Alcohol Use: None Hx Substance Use: No Substance Use Type: Reports: None Hx Tobacco Use: No Smoking Status (MU): Current Some Day Smoker Review of Systems Constitutional: Negative Negative: Fever, Chills Positive: Rash All Other Systems Reviewed And Are Negative: Yes Physical Exam Triage Information Reviewed: Yes Vital Signs On Initial Exam: Initial Vitals Temp Pulse Resp BP Pulse Ox 99.2 F 94 16 122/98 98 09/23/18 14:10 09/23/18 14:10 09/23/18 14:10 09/23/18 14:10 09/23/18 14:10 Vital Signs Reviewed: Yes Appearance: Positive: Well-Appearing - Pt. lying in bed in NAD. Skin: Positive: Warm, Dry, Other - Pt. examined with nurse in [place] [facility]. Very small mild erythematous macular lesion noted to anterior aspect of left breast and similar lesion noted on right breast. No pain to these areas. No surrounding erythema. No induration or fluctuance. Head/Face: Positive: Normal Head/Face Inspection Eyes: Positive: Normal, EOMI Neck: Positive: Supple Abdomen Description: Positive: Nontender, Soft Musculoskeletal: Positive: Normal, Strength/ROM Intact Neurological: Positive: Normal, CN Intact II-III Psychiatric: Positive: Affect/Mood Appropriate Diagnostics - Vital Signs Vital Signs Temp Pulse Resp BP Pulse Ox 09/23/18 15:12 98.2 F 71 18 128/85 100 09/23/18 14:10 99.2 F 94 16 122/98 98 - Laboratory Lab Statement: Any lab studies that have been ordered have been reviewed, and results considered in the medical decision making process. Course/Dx - Course Course Of Treatment: Pt. presenting for evaluation of two small what appear to be healing wounds. No signs abscess. Afebrile. Will start on bactroban ointment. Advised to call [facility] today for an apt. To return to ER if symptoms change or worsen. Pt. understands and agrees with plan. - Differential Diagnoses - Skin Complaint Differential Diagnoses: Abscess, Cellulitis, Drug Rash, Eczema, MRSA, Tinea - Diagnoses Provider Diagnoses: Rash Discharge - Sign-Out/Discharge Documenting (check all that apply): Patient Departure Patient Received Moderate/Deep Sedation with Procedure: No - Discharge Plan Condition: Good Disposition: HOME Prescriptions: Mupirocin 2% OINT* [Bactroban 2 % Oint*] 1 applic TOPICAL BID #30 tube Patient Education Materials: Acute Wound Care (ED), Acute Rash (ED) Referrals: [facility] [Outside] Additional Instructions: Call the [facility] today to schedule a close follow up appointment Use ointment as directed Return to ER if symptoms change or worsen - Billing Disposition and Condition Condition: GOOD Disposition: Home
== END 2018-09-23 15:12 | disposition home or self-care (01) ==
LOC: ED 14:04
DX: R21 Rash and other nonspecific skin eruption (principal); F17.200 Nicotine dependence, unspecified, uncomplicated
CPT/HCPCS: 99282

== ENCOUNTER → 2018-11-13 13:14 | Emergency (ER) | payer OTHER ==
--- NOTE | 2018-11-13 14:09 | ED ---
Skin Complaint - HPI Summary HPI Summary: 33-year-old female presents with rash for the past couple weeks. States that past couple days the rash has been spreading. States it is across her back. States it is very itchy. she admits to some pain. Never had this before. placed a steroid on it and it has got worse. She denies any fevers currently. No new products or soaps. no one else has similiar rash. - History of Current Complaint Chief Complaint: EDRashSkinAbscess Time Seen by Provider: 11/13/18 13:57 Stated Complaint: RASH PER PT Pain Intensity: 5 - Allergy/Home Medications Allergies/Adverse Reactions: Allergies Allergy/AdvReac Type Severity Reaction Status Date / Time No Known Allergies Allergy Verified 11/13/18 13:30 PMH/Surg Hx/FS Hx/Imm Hx Endocrine/Hematology History: Denies: Hx Anticoagulant Therapy, Hx Blood Disorders, Hx Diabetes Cardiovascular History: Denies: Hx Hypertension Respiratory History: Denies: Hx Asthma History: Denies: Hx Dialysis, Hx Renal Disease - Surgical History Surgery Procedure, Year, and Place: x 2 Infectious Disease History: No Infectious Disease History: Denies: Traveled Outside the [place] in Last 30 Days - Family History Known Family History: Positive: Hypertension, Other - Cancer, hypercholesterolemia Negative: Cardiac Disease - Social History Alcohol Use: None Hx Substance Use: No Substance Use Type: Reports: None Hx Tobacco Use: No Smoking Status (MU): Current Some Day Smoker Review of Systems Negative: Fever Negative: Chest Pain Negative: Shortness Of Breath Positive: Rash All Other Systems Reviewed And Are Negative: Yes Physical Exam Triage Information Reviewed: Yes Vital Signs On Initial Exam: Initial Vitals Temp Pulse Resp BP Pulse Ox 98.4 F 76 16 123/84 97 11/13/18 13:28 11/13/18 13:28 11/13/18 13:28 11/13/18 13:28 11/13/18 13:28 Vital Signs Reviewed: Yes Appearance: Positive: Well-Appearing Skin: Positive: Warm, Dry, Other - hyperpigmented lesions on breast and back without erythema around, some scaling present on some lesions Head/Face: Positive: Normal Head/Face Inspection Eyes: Positive: Normal, Conjunctiva Clear ENT: Positive: Pharynx normal Respiratory/Lung Sounds: Positive: Clear to Auscultation, Breath Sounds Present Cardiovascular: Positive: Normal, RRR Musculoskeletal: Positive: Normal Neurological: Positive: Normal Psychiatric: Positive: Normal Diagnostics - Vital Signs Vital Signs Temp Pulse Resp BP Pulse Ox 11/13/18 13:28 98.4 F 76 16 123/84 97 - Laboratory Lab Statement: Any lab studies that have been ordered have been reviewed, and results considered in the medical decision making process. Course/Dx - Course Course Of Treatment: 33-year-old female presents with rash for the past couple weeks. States that past couple days the rash has been spreading. States it is across her back. States it is very itchy. she admits to some pain. Never had this before. placed a steroid on it and it has got worse. She denies any fevers currently. No new products or soaps. no one else has similiar rash. On exam has hyperpigmented rash with scaling on across back and on breast. No erythema. We'll treat with ketoconazole for potential tinea veriscolor. Gave referral to dermatology if not improving. Patient understands agrees with plan. - Differential Diagnoses - Skin Complaint Differential Diagnoses: Cellulitis, Contact Dermatitis, Tinea - Diagnoses Provider Diagnoses: Rash Discharge - Sign-Out/Discharge Documenting (check all that apply): Patient Departure Patient Received Moderate/Deep Sedation with Procedure: No - Discharge Plan Condition: Good Disposition: HOME Prescriptions: Ketoconazole 120 ml TOPICAL DAILY #1 shampoo Patient Education Materials: Tinea Versicolor (ED) Referrals: Jsuto Mcgill MD [Medical Doctor] - Additional Instructions: apply shampoo to wet skin, lather, wait 5 minutes rinse, use until rash disappears Follow up with dermatology if no improvement in a week Return to ED if develop any new or worsening symptoms - Billing Disposition and Condition Condition: GOOD Disposition: Home
[2018-11-13 14:39] VITALS: BP 118/63
== END | disposition home or self-care (01) ==
LOC: ED 13:14
DX: R21 Rash and other nonspecific skin eruption (principal); F17.210 Nicotine dependence, cigarettes, uncomplicated
CPT/HCPCS: 99281